=== PATIENT | male | born 1965 | race Caucasian/White ===

== ENCOUNTER 2017-05-18 12:43 | Day surgery (SDC) | payer MEDICAID ==
[2017-05-18] MEDS ORDERED: BUPIVACAINE 0.5% 30 ML SDV ONE (15:26)
[2017-05-18] MEDS ORDERED: LIDOCAINE 1% 300 MG/30 ML SDV ONE (15:26)
[2017-05-18] MEDS ORDERED: IOPAMIDOL (ISOVUE-M 300) 15 ML VIAL ONE (15:26)
[2017-05-18] MEDS ORDERED: DEPO METHYLPREDNISOLONE 80 MG/ML SDV ONE (15:26)
== END 2017-05-18 15:50 | disposition home or self-care (01) ==
LOC: FIMAGING 12:43
PROVIDERS: ATTEND Physician Assistant
DX: M54.12 Radiculopathy, cervical region (principal); M48.02 Spinal stenosis, cervical region; Z98.1 Arthrodesis status
CPT/HCPCS: J1040; Q9967